=== PATIENT | male | born 1985 | race Caucasian/White ===

== ENCOUNTER 2018-04-14 10:01 | Emergency (ER) | payer BC ==
[~2018-04-14] VITALS: Ht 188 cm; Wt 86.6 kg
[2018-04-14 10:03] VITALS: Ht 188 cm; Wt 86.6 kg
[2018-04-14 10:35] LABS: BASOPHIL % 0.3 % (0-2); PLATELET COUNT 164 x10^3mcL (130-400); RED CELL DISTRIBUTION WIDTH 12.8 % (11.5-14.5)
[2018-04-14 10:42] LABS: CALCIUM 8.5 mg/dL (8.5-10.1); CARBON DIOXIDE 25.3 mmol/L (21-32); CHLORIDE SERUM 102 mmol/L (98-107); CREATININE SERUM 1.1 mg/dL (0.7-1.3); GFR1 > 60 mL/min; GLUCOSE SERUM 145 mg/dL (74-106); POTASSIUM SERUM 3.7 mmol/L (3.5-5.1); SODIUM SERUM 135 mmol/L (136-145)
[2018-04-14 10:47] LABS: ALBUMIN 3.8 g/dL (3.4-5.0); ALKALINE PHOSPHATASE 66 U/L (46-116); ALT/SGPT 54 U/L (16-63); AST/SGOT 38 U/L (15-37); BILIRUBIN TOTAL 1.48 mg/dL (0.20-1.00); TOTAL PROTEIN, SERUM 7.4 g/dL (6.4-8.2)
[2018-04-14 11:27] VITALS: BP 118/71
== END 2018-04-14 11:27 | disposition home or self-care (01) ==
LOC: ED 10:01
PROVIDERS: Emergency Medicine
DX: R50.9 Fever, unspecified (principal); R51 Headache; M79.1 Myalgia
CPT/HCPCS: 86788; 86789; J1885; J2765; J7030; Q0092